=== PATIENT | female | born 1950 | race Caucasian/White ===

== ENCOUNTER 2021-09-21 10:16 | Emergency (ER) | payer MEDICARE, OTHER ==
[2021-09-21] MEDS ORDERED: Ketorolac 30 MG/ML SDV IM ONE (10:55)
== END 2021-09-21 11:54 | disposition home or self-care (01) ==
LOC: JP.ED 10:16
DX: S90.32XA Contusion of left foot, initial encounter (principal); E11.9 Type 2 diabetes mellitus without complications; I25.10 Atherosclerotic heart disease of native coronary artery without angina pectoris; E78.00 Pure hypercholesterolemia, unspecified; I10 Essential (primary) hypertension; Z79.82 Long term (current) use of aspirin; Z79.899 Other long term (current) drug therapy; Z79.84 Long term (current) use of oral hypoglycemic drugs; Z95.5 Presence of coronary angioplasty implant and graft; W22.09XA Striking against other stationary object, initial encounter
CPT/HCPCS: 73610; 73630; 96372; 99282; 99283; J1885